=== PATIENT | female | born 1965 ===

== ENCOUNTER → 2023-05-12 09:10 | Outpatient (CLI) | payer BC, SELFPAY ==
--- NOTE | ~2023-05-12 | MR_ITS ---
EXAMINATION: MR lower leg LT wo con DATE: 05/12/2023 09:52 INDICATION: Gastrocnemius tear, left, initial encounter. Left lower leg pain. TECHNIQUE: Magnetic resonance imaging (MRI) of the left lower leg was performed without intravenous c ontrast. COMPARISON: None. FINDINGS: Bone alignment is normal. No fracture. Bone marrow signal intensity is normal. There is a s mall partial tear of medial head of gastrocnemius at the myotendinous junction. IMPRESSION: 1. Small partial tear of medial head of gastrocnemius at the myotendinous junction (grade 2 strain). Reviewed, dictated and finalized at location A. IMPRESSION: 1. Small partial tear of medial head of gastrocnemius at the myotendinous junct ion (grade 2 strain).
== END ==
PROVIDERS: PCP Orthopaedic Surgery; Visit Provider Orthopaedic Surgery
DX: S86.112A Strain of other muscle(s) and tendon(s) of posterior muscle group at lower leg level, left leg, initial encounter (principal); T14.90XA Injury, unspecified, initial encounter
CPT/HCPCS: 73718